=== PATIENT | female | born 1945 | race Caucasian/White ===

== ENCOUNTER 2023-01-23 06:55 | Emergency (ER) | payer OTHER ==
[~2023-01-23] VITALS: Ht 160 cm; Wt 90.7 kg
[2023-01-23] MEDS ORDERED: VALSARTAN-HCTZ1 EAC4 (07:15)
[2023-01-23] MEDS ORDERED: LEVOFLOXACIN500 MG (07:15)
[2023-01-23] MEDS ORDERED: DILTIAZEM ER240 M2 (07:16)
== END 2023-01-23 10:49 | disposition home or self-care (01) ==
LOC: ER 06:55
DX: N39.0 Urinary tract infection, site not specified (principal); M19.90 Unspecified osteoarthritis, unspecified site; I10 Essential (primary) hypertension; B96.4 Proteus (mirabilis) (morganii) as the cause of diseases classified elsewhere